=== PATIENT | female | born 1980 | race African-American/Black ===

== ENCOUNTER 2018-12-15 19:13 | Emergency (ER) | payer OTHER ==
[~2018-12-15] VITALS: Ht 162.6 cm; Wt 74.4 kg
[~2018-12-15 19:13] MED LIST: BACTRIM 400-801 EACH PO; BENTYL 20 MG TA20 M1 PO; FLAGYL500 MG PO; HYDROCODONE-AP1 EAC6 PO; IBUPROFEN 600600 M1 PO; NOHOMEMEDICATIONS; NORCO 5-325 TA1 EACH PO; ZOFRAN ODT4 MG PO
[2018-12-15 21:14] VITALS: BP 120/52
== END 2018-12-15 21:15 | disposition home or self-care (01) ==
LOC: ER 19:13
DX: S16.1XXA Strain of muscle, fascia and tendon at neck level, initial encounter (principal); S29.012A Strain of muscle and tendon of back wall of thorax, initial encounter; R51 Headache; V49.49XA Driver injured in collision with other motor vehicles in traffic accident, initial encounter; Y93.I9 Activity, other involving external motion; Y92.410 Unspecified street and highway as the place of occurrence of the external cause; Y99.8 Other external cause status; Z88.1 Allergy status to other antibiotic agents